=== PATIENT | male | born 1950 | race Caucasian/White ===

== ENCOUNTER 2024-02-01 08:11 | Day surgery (SDC) | payer OTHER ==
[~2024-02-01] VITALS: Ht 167.6 cm; Wt 59.9 kg
[~2024-02-01 08:11] MED LIST: Amlodipine Bes2.5 MG; Balanced Salt Epinephrine Irrigation Solution 500 mL IR SCH; LISI20 PO; Lidocaine HCl/Pf 1% 5 ML VIAL XX SCH; Moxifloxacin HCL 0.5 MG/0.1 ML 0.4MLSYR RIGHTEYE SCH; NS 500 ML IV ONE; PHENYLEPHRINE\\TROPICAMIDE\\TETRACAINE OPHTHALMIC DILATING SOLN RIGHTEYE PRN; PRAV20 PO; Povidone-Iodine 450 DROP/30 ML Solution RIGHTEYE SCH
[2024-02-01] MEDS ORDERED: Phenylephrine Frt 10% Opth (ORSC) ONE (08:32)
[2024-02-01] MEDS ORDERED: NS 500 ML IV ONE (08:44)
--- NOTE | 2024-02-01 08:44 | NUR ---
02/01/24 0844 Yani Juarez CALL LIGHT WITHIN REACH. TETRACAINE IN AT 0841 IN RIGHT EYE AND PLEDGETT IN AT 0842
[2024-02-01] MEDS ORDERED: Midazolam HCl 1MG / ML 2ML Vial ONE (09:15)
[2024-02-01] MEDS ORDERED: Tetracaine HCl 0.5% Opth Soln 15 ml RIGHTEYE ONE (09:20)
[2024-02-01] MEDS ORDERED: FentaNYL Citrate 50 MCG/ML 2 ML Injection ONE (09:21)
[2024-02-01 09:50] VITALS: BP 152/93
== END 2024-02-01 10:05 | disposition home or self-care (01) ==
LOC: ORSCSDS 08:11
PROVIDERS: Student in an Organized Health Care Education/Training Program
PROC: 08RJ3JZ Replacement of Right Lens with Synthetic Substitute, Percutaneous Approach (ICD-10-PCS; principal; 2024-02-01 09:30)
DX: H25.811 Combined forms of age-related cataract, right eye (principal); Z96.1 Presence of intraocular lens; I10 Essential (primary) hypertension; N40.0 Benign prostatic hyperplasia without lower urinary tract symptoms; E78.5 Hyperlipidemia, unspecified; Z79.899 Other long term (current) drug therapy; Z87.891 Personal history of nicotine dependence
CPT/HCPCS: J2250; J3010; J7040; V2632